=== PATIENT | male | born 1980 | race Caucasian/White ===

== ENCOUNTER 2017-09-17 00:45 | Emergency (ER) | payer OTHER ==
[~2017-09-17] VITALS: Ht 177.8 cm; Wt 72.6 kg
[2017-09-17 02:37] VITALS: BP 113/69
--- NOTE | 2017-09-17 02:46 | ED UPPER/LOWER EXTREMITY COMPL ---
History of Present Illness General Chief Complaint: Animal/Insect Bite Stated Complaint: PT C/C LT LEG INFECTION ? SPIDER BITE X'S 2 DAYS Source: patient Exam Limitations: no limitations Vital Signs & Intake/Output Vital Signs & Intake/Output Vital Signs Date Time Temp Pulse Resp B/P B/P Pulse O2 O2 Flow FiO2 Mean Ox Delivery Rate 09/17 0237 98.6 106 18 113/69 99 Room Air Allergies Coded Allergies: No Known Allergies (09/17/17) Reconcile Medications Cephalexin (Keflex) 500 MG CAPSULE 1 CAP PO 4 TIMES/DAY INFECTION Ibuprofen 800 MG TABLET 1 TAB PO TID PRN pain Sulfamethoxazole/Trimethoprim (Bactrim Ds Tablet) 800 MG-160 MG TABLET 1 TAB PO BID INFECION Triage Note: PER PT ? SPIDER BITE TO LLE 2 DAYS AGO, RED WARM SWOLLEN UNSURE OF LAST TETANUS BUT REPORTS THINKS UTD Triage Nurses Notes Reviewed? yes Onset: Gradual Duration: day(s): Timing: recent history Severity: mild, moderate Pain/Injury Location: Left: Leg. Method of Injury: POSSIBLE INSECT BITE Modifying Factors: Improves With: jarring, rest. Associated Symptoms: swelling, redness HPI: 36 YO h/o well controlled HIV Presents with 2-3 days of left calf area of redness and pain and swelling. He notes, "I think a spider or another insect bit my calf." Notes. Swelling in the area of about 5 cm in diameter. There is no sara discharge. No joint involvement. He is afebrile. Past History Travel History Traveled to [place] past 21 day No Medical History Any Pertinent Medical History? see below for history Neurological: NONE EENT: NONE Cardiovascular: NONE Respiratory: NONE Gastrointestinal: NONE Hepatic: NONE Renal: NONE Musculoskeletal: NONE Psychiatric: NONE Endocrine: NONE Blood Disorders: HIV... WELL CONTROLLED Surgical History Surgical History: non-contributory Psychosocial History What is your primary language Hungarian Tobacco Use: Never used Family History Hx Contributory? No Review of Systems Review of Systems Constitutional: Reports: no symptoms. EENTM: Reports: no symptoms. Respiratory: Reports: no symptoms. Cardiovascular: Reports: no symptoms. Gastrointestinal/Abdominal: Reports: no symptoms. Genitourinary: Reports: no symptoms. Musculoskeletal: Reports: no symptoms. Skin: Reports: no symptoms. Neurological/Psychological: Reports: no symptoms. Hematologic/Endocrine: Reports: no symptoms. Immunological: Reports: no symptoms. All Other Systems: Reviewed and Negative Physical Exam Physical Exam General Appearance: well developed/nourished, mild distress Head: atraumatic, normal appearance, active bleeding Eyes: Bilateral: normal appearance. Ears, Nose, Throat: normal pharynx, normal ENT inspection, hearing grossly normal Neck: normal inspection, supple, full range of motion Cardiovascular/Respiratory: normal breath sounds, regular rate/rhythm, no respiratory distress, accessory muscle use, bradycardia, decreased pulses, gallop, JVD, murmur, rales, rhonchi, respiratory distress, tachycardia, wheezing , no murmurs/rubs/gallops Leg Left: ON THE MEDIAL CALF OF HIS LEFT LEG THERE IS A CIRCULAR INDURATED ERYTHEMATOUS RASH APPROXIMATELY 4-5 CM ACROSS. tHERE IS NO DISCHARGE TO FIRM PALPATION. tHERE IS A CENTRAL ESCHAR WHICH WAS ATTACHED WITH PALPATION. tHERE IS NO LYMPHANGITIC STREAKING. iT IS INDURATED AND MILD TO MODERATELY TENDER TO PALPATION. Progress Differential Diagnosis: CELLULITIS VERSUS INSECT BITE VERSUS OTHER Plan of Care: Current Medications Sig/Andres Start time Last Medication Dose Stop Time Status Admin Cephalexin 500 MG ONCE ONE 09/17 299 UNVr (Keflex) 09/17 300 Trimethoprim/ 1 TAB ONCE ONE 09/17 299 UNVr Sulfamethoxazole 09/17 300 (Bactrim DS) Departure Departure Disposition: HOME OR SELF CARE Condition: Stable Clinical Impression Primary Impression: Cellulitis Secondary Impressions: Insect bite Referrals: Patient Has No Primary Care Dr (PCP/Family) Departure Forms: Customer Survey General Discharge Information Prescriptions: Current Visit Scripts Cephalexin (Keflex) 1 CAP PO 4 TIMES/DAY #40 CAP Sulfamethoxazole/Trimethoprim (Bactrim Ds Tablet) 1 TAB PO BID #20 TAB Ibuprofen 1 TAB PO TID PRN pain #30 TAB
[2017-09-17] MEDS ORDERED: BACTRIM DS TAB1 EACH PO (02:47)
[2017-09-17] MEDS ORDERED: KEFLEX500 M1 PO (02:47)
[2017-09-17] MEDS ORDERED: IBUPROFEN800 M1 PO (02:49)
== END 2017-09-17 02:59 ==
LOC: ERH 00:45
DX: S80.862A Insect bite (nonvenomous), left lower leg, initial encounter (principal); L03.116 Cellulitis of left lower limb; B20 Human immunodeficiency virus [HIV] disease; W57.XXXA Bitten or stung by nonvenomous insect and other nonvenomous arthropods, initial encounter; Y92.9 Unspecified place or not applicable; Y93.9 Activity, unspecified